=== PATIENT | female | born 1990 ===

== ENCOUNTER 2019-09-21 12:14 | Outpatient (CLI) | payer OTHER ==
[2019-09-21 16:32] LABS: Bacteria,Urine 1+ /HPF (Negative); Bilirubin,Urine NEG (Negative); Blood,Urine NEG (Negative); Color,Urine Yellow (Yellow); Mucus,Urine FEW /HPF; Protein,Urine <15 mg/dL mg/dL (Negative); Urobilinogen,Urine < 2.0 mg/dL (<2.0)
[2019-09-21 16:36] LABS: Amphetamine Screen,Urine PRESUMPTIVE NEGATIVE; Benzodiazepines Screen,Urine PRESUMPTIVE NEGATIVE; Cannabinoid Screen,Urine PRESUMPTIVE NEGATIVE; Cocaine Screen,Urine PRESUMPTIVE NEGATIVE; Methadone Screen,Urine PRESUMPTIVE NEGATIVE; Opiate Screen,Urine PRESUMPTIVE NEGATIVE
--- NOTE | 2019-09-21 17:04 | Ultrasound Report ---
{null, ULTRASOUND OBSTETRIC INDICATION / CLINICAL INFORMATION: BPP. Check MYRTEL. Clinical Gestational Age (GA): 36.6 weeks.days TECHNIQUE: Transabdominal. COMPARISON: None available. FINDINGS: There is a single intrauterine . Biparietal Diameter = 8.8 cm = 35.2 weeks.days Head Circumference = 32.4 cm = 36.5 weeks.days Abdominal Circumference = 31.7 cm = 3 5.5 weeks.days Femur Length = 7.2 cm = 36.5 weeks.days Average Ultrasound Age (AUA) = 36.1 weeks.days Heart Rate: 147 beats per minute. Estimated Weight in grams (if calculated): 2827 Estimated Weight Growth Percentile (if calculated): 3 3 Position: cephalic. Cervix: closed. Length in cm (if measured): Not measured Placenta: anterior and free of the os. Amniotic Fluid Volume: normal Amniotic Fluid Index (MYRTLE) in cm (if calculated): 8.9. Maternal Adnexa: No significant abnormality. BREATHING MOVEMENT = 2 GROSS BODY MOVEMENT = 2 TONE = 2 QUALITATIVE AMNIOTIC FLUID VOLUME = 2 TOTAL BIOPHYSICAL SCORE = 8/8 IMPRESSION: 1. Single, living intrauterine with estimated sonographic age of 36.1 weeks.days 2. Biophysical profile score 8/8 3. Normal amniotic fluid volume with MYRTLE = 8.9 cm Signer Name: Josselin Keyes MD Signed: 09/21/2019 5:00 PM Workstation Name: [id number] }
--- NOTE | 2019-09-21 17:04 | Ultrasound Report ---
{null, ULTRASOUND OBSTETRIC INDICATION / CLINICAL INFORMATION: BPP. Check MYRTLE. Clinical Gestational Age (GA): 36.6 weeks.days TECHNIQUE: Transabdominal. COMPARISON: None available. FINDINGS: There is a single intrauterine . Biparietal Diameter = 8.8 cm = 35.2 weeks.days Head Circumference = 32.4 cm = 36.5 weeks.days Abdominal Circumference = 31.7 cm = 3 5.5 weeks.days Femur Length = 7.2 cm = 36.5 weeks.days Average Ultrasound Age (AUA) = 36.1 weeks.days Heart Rate: 147 beats per minute. Estimated Weight in grams (if calculated): 2827 Estimated Weight Growth Percentile (if calculated): 3 3 Position: cephalic. Cervix: closed. Length in cm (if measured): Not measured Placenta: anterior and free of the os. Amniotic Fluid Volume: normal Amniotic Fluid Index (MYRTLE) in cm (if calculated): 8.9. Maternal Adnexa: No significant abnormality. BREATHING MOVEMENT = 2 GROSS BODY MOVEMENT = 2 TONE = 2 QUALITATIVE AMNIOTIC FLUID VOLUME = 2 TOTAL BIOPHYSICAL SCORE = 8/8 IMPRESSION: 1. Single, living intrauterine with estimated sonographic age of 36.1 weeks.days 2. Biophysical profile score 8/8 3. Normal amniotic fluid volume with MYRTLE = 8.9 cm Signer Name: Josselin Keyes MD Signed: 09/21/2019 5:00 PM Workstation Name: [id number] }
--- NOTE | 2019-09-21 17:42 | Event Note ---
{null, Date: 09/21/19 28 year old female presents at 36 weeks gestation to L&D to rule out leaking of water. Patient states while she was using the restroom today she felt something leak one time and has not felt it since. Denies vaginal bleeding. Reports active movement. No falls or abdominal trauma. Patient denies abdominal pain. Patient receives care at [facility] and reports no problems during her . Patient denies dysuria, fever, chills, malaise, nausea or vomiting, or flank pain. Patient is well appearing, alert and oriented NAD. Abdomen soft, nontender. No CVAT bilaterally. No regular contractions palpated or noted per monitor. Reactive heart rate tracing. Speculum exam performed; no pooling, negative nitrazine, negative fern test. Cervix 1 cm and thick and high. Not in active labor. Baby is moving actively. Small amount of urine seen leaking from urethra with coughing. BPP 8/8. MYRTLE 8.9 cm. Urine shows no nitrites and no leukocyte esterase. UDS negative. Manual pulse 98 bpm. Patient states she was moving and talking during the 2 pulse rates that were 114 bpm and 116 bpm. Patient denies chest pain, SOB, or palpitations. Consulted with Dr. Bernabe re: patient and elevated maternal heart rate and all of the above; MD states OK to discharge patient home. Discussed with patient need to follow up with OB clinic tomorrow, need to drink plenty of water, count movements daily, and return promptly if labor or any problems. Pt. V/U. }
[2019-09-21 18:27] VITALS: BP 107/64
== END 2019-09-21 18:35 | disposition home or self-care (01) ==
LOC: TRG 12:14
PROVIDERS: ATTEND Obstetrics & Gynecology
DX: O47.03 False labor before 37 completed weeks of gestation, third trimester (principal); Z3A.36 36 weeks gestation of pregnancy
CPT/HCPCS: 59025; 76816; 76819; 80307; 81001

== ENCOUNTER 2019-09-30 16:57 | Inpatient (IN) | payer OTHER ==
[2019-09-30] MEDS ORDERED: LACTATED RINGERS 1,000 ML IV SCH (22:00)
[2019-09-30] MEDS ORDERED: OXYTOCIN 20 UNIT/1000ML DRIP 20 UNITS/1,000 ML BAG IV SCH (22:00)
[2019-09-30] MEDS ORDERED: OXYTOCIN DRIP 30 UNITS/500 ML BAG IV SCH (22:00)
[2019-09-30 23:25] LABS: Hematocrit 38.7 % (30.3-42.9); Hemoglobin 13.1 gm/dl (10.1-14.3); Mean Corpuscular HGB Conc 34 % (30-34); Mean Corpuscular Volume 90 fl (79-97); Platelet Count 222 K/mm3 (140-440); Red Blood Count 4.28 M/mm3 (3.65-5.03); Red Cell Distribution Width 13.6 % (13.2-15.2)
[2019-10-01] MEDS ORDERED: BUTORPHANOL 2 MG/1 ML INJ IV PRN (01:00)
[2019-10-01] MEDS ORDERED: fentaNYL 100 MCG/2 ML INJ IV ONE (01:31)
--- NOTE | 2019-10-01 02:05 | History and Physical Report ---
History of Present Illness Date of examination: 10/01/19 Date of admission: 09/30/19 16:57 History of present illness: PT is a at 38.2 weeks who is s/p PROM around 1030 am. PT sent from the office after being confirmed ROM clear there and was 3 cm on admission. PT given pit augmentation and is now s/p . See delivery note for details of delivery. Uncomplicated except for a UTI, tx'd for chlamydia and ASCUS. GBS neg. Past History Past Medical History: no pertinent history Past Surgical History: D&C - Obstetrical History : 3 Para: 1 Hx # Term Pregnancies: 1 Spontaneous Abortions: 1 Number of Living Children: 1 Medications and Allergies Allergies Allergy/AdvReac Type Severity Reaction Status Date / Time No Known Allergies Allergy Unverified 09/21/19 16:28 Active Meds: Active Medications Butorphanol Tartrate (Stadol) 2 mg IV Q2H PRN PRN Reason: Labor Pain Lactated Ringer's (Lactated Ringers) 1,000 mls @ 125 mls/hr IV DIRECT KENYA Last Admin: 09/30/19 22:07 Dose: 125 mls/hr Documented by: Oxytocin/Sodium Chloride (Pitocin/Ns 20 Unit/1000ml Drip) 20 units in 1,000 mls @ 125 mls/hr IV DIRECT KENYA Oxytocin/Sodium Chloride (Pitocin/Ns 30 Unit/500ml) 30 units in 500 mls @ 2 mls/hr IV TITR KENYA; Protocol Last Titration: 10/01/19 00:25 Dose: 10 mls/hr, 10 mls/hr Documented by: Review of Systems All systems: negative (except HPI) - Vital Signs Vital signs: Vital Signs Temp 98.0 F 09/30/19 17:30 Temp Pulse Resp BP Pulse Ox 97.8 F 103 H 20 133/73 99 10/01/19 00:22 10/01/19 01:49 10/01/19 01:14 10/01/19 01:42 10/01/19 01:49 - Physical Exam Abdomen: Positive: normal appearance. Negative: tenderness Results Result Diagrams: 09/30/19 20:02 Abnormal lab results 09/30/19 Range/Units 20:02 WBC 11.4 H (4.5-11.0) K/mm3 All other labs normal. Assessment and Plan - Patient Problems (1) Vaginal delivery Current Visit: Yes Status: Acute Plan to address problem: Pt is now stable s/p . Cont care.
--- NOTE | 2019-10-01 02:18 | Procedure Note ---
OB Delivery Note - Delivery Date of Delivery: 10/01/19 Surgeon: KERVIN RASMUSSEN Estimated blood loss: 200cc - Vaginal Delivery presentation: vertex Delivery position: OA Intrapartum events: PROM->1hr before delivery Delivery augmentation: pitocin Delivery monitor: external FHT Route of delivery: Delivery placenta: spontaneous Delivery cord: 3 umbilical vessels Episiotomy: none Delivery laceration: 2nd degree Delivery repair: vicryl Anesthesia: intravenous Delivery comments: Anterior shoulder delivered without difficulty. Delayed cord clamping and cut. Baby to the warmer. Placenta delivered spontaneously and was delivered in its entirety. Second-degree laceration repaired with 2-0 Vicryl. Good hemostasis throughout. Mother and baby stable. - B at 1 minute: 8 at 5 minutes: 9 Gender: Female
[2019-10-01] MEDS ORDERED: diphenhydrAMINE 25 MG CAP PO PRN (02:19)
[2019-10-01] MEDS ORDERED: ACETAMINOPHEN 325 MG TAB PO PRN (02:19)
[2019-10-01] MEDS ORDERED: MAGNESIUM HYDROXIDE (MOM) ORAL LIQD UDC PO PRN (02:19)
[2019-10-01] MEDS ORDERED: PROMETHAZINE 25 MG TAB PO PRN (02:19)
[2019-10-01] MEDS ORDERED: WITCH HAZEL/ GLYCERIN PAD TP PRN (02:19)
[2019-10-01] MEDS ORDERED: PROMETHAZINE 25 MG RECT SUPP PR PRN (02:19)
[2019-10-01] MEDS ORDERED: LANOLIN/ZINC/DIMETHICONE (LANSINOH) 7 GM TP PRN ×2 (02:19)
[2019-10-01] MEDS ORDERED: BENZOCAINE/MENTHOL 20/0.5% TOP SPRAY 56 GM TP PRN (02:19)
[2019-10-01] MEDS ORDERED: ONDANSETRON 4 MG/2 ML INJ IV PRN (02:19)
[2019-10-01] MEDS ORDERED: oxyCODONE /ACETAMINOPHEN 5-325MG TAB PO PRN (02:19)
[2019-10-01] MEDS ORDERED: OXYTOCIN 20 UNIT/1000ML DRIP 20 UNITS/1,000 ML BAG IV SCH (03:00)
[2019-10-01] MEDS: IBUPROFEN 600 MG TAB PO SCH ×5 (05:25→23:12)
[2019-10-01] MEDS: SENNOSIDES/DOCUSATE SODIUM 8.6/50 MG TAB PO SCH ×3 (05:34→23:12)
[2019-10-02] MEDS: IBUPROFEN 600 MG TAB PO SCH (06:05)
[2019-10-02 06:34] LABS: Hematocrit 36.1 % (30.3-42.9); Hemoglobin 12.2 gm/dl (10.1-14.3)
[2019-10-02 09:08] VITALS: BP 108/70
[2019-10-02] MEDS: SENNOSIDES/DOCUSATE SODIUM 8.6/50 MG TAB PO SCH (09:38)
--- NOTE | 2019-10-02 10:45 | Progress Note ---
Assessment and Plan A: PP Day #1 Stable P: Follow Routine Orders D/C home today per patient request RTO in 6 Weeks Subjective - Subjective Date of service: 10/02/19 Patient reports: appetite normal, voiding normally, pain well controlled, flat us, ambulating normally : doing well Objective - Vital Signs Latest vital signs: Vital Signs Temp Pulse Resp BP BP Pulse Ox 10/02/19 07:45 98.4 F 106 H 20 108/70 95 10/02/19 00:00 98.2 F 84 18 116/76 100 10/01/19 16:21 97.7 F 113 H 18 105/66 97 10/01/19 11:57 97.4 F L 97 H 18 103/66 97 Intake and Output 10/01/19 10/02/19 10/02/19 22:59 06:59 14:59 Intake Total 240 Balance 240 Intake: Oral 240 Other: Total, Intake Amount 240 # Voids Void 1 - Exam Breasts: Present: normal Cardiovascular: Present: Regular rate Lungs: Present: Clear to auscultation, Normal air movement Abdomen: Present: normal appearance, soft, normal bowel sounds Uterus: Present: normal, firm, fundal height below umbilicus Extremities: Present: normal
--- NOTE | 2019-10-02 10:46 | Discharge Summary ---
Providers - Providers Date of Admission: 09/30/19 16:57 Date of discharge: 10/02/19 Attending physician: KERVIN RASMUSSEN Primary care physician: CARLOS VASQUEZ MD Hospitalization Reason for admission: rupture of membranes Delivery: Episiotomy: none Laceration: 2nd degree Other procedures: none complications: none Discharge diagnosis: IUP at term delivered baby: female Condition at discharge: Good Disposition: DC-01 TO HOME OR SELFCARE Plan - Provider Discharge Summary Activity: routine, no sex for 6 weeks, no heavy lifting 4 weeks, no strenuous exercise Diet: routine Instructions: routine Additional instructions: [] Smoking cessation referral if applicable(refer to patient education folder for contact #) [] Refer to [facility] Booklet Call your doctor immediately for: * Fever > 100.5 * Heavy vaginal bleeding ( >1 pad per hour) * Severe persistent headache * Shortness of breath * Reddened, hot, painful area to leg or breast * Drainage or odor from incision. * Keep incision clean and dry at all times and follow doctor's instructions regarding bathing/showering - Follow up plan Follow up: CARLOS VASQUEZ MD [Primary Care Provider] - 6 Weeks
== END 2019-10-02 12:30 | disposition home or self-care (01) | DRG 807 ==
LOC: LD 16:57 → OB 10-01 04:02
PROVIDERS: ADMIT Obstetrics & Gynecology; ATTEND Obstetrics & Gynecology
PROC: 10E0XZZ Delivery of Products of Conception, External Approach (ICD-10-PCS; principal; 2019-10-01)
PROC: 0KQM0ZZ Repair Perineum Muscle, Open Approach (ICD-10-PCS; 2019-10-01)
DX: O42.02 Full-term premature rupture of membranes, onset of labor within 24 hours of rupture (principal); Z37.0 Single live birth; O70.1 Second degree perineal laceration during delivery; Z3A.38 38 weeks gestation of pregnancy
CPT/HCPCS: 36415; 85014; 85018; 85027; 86592; 86850; 86900; 86901; G0378; J2590; J3010; J7120